=== PATIENT | male | born 1990 | race Caucasian/White ===

== ENCOUNTER 2016-11-16 13:23 | Emergency (ER) | payer MEDICAID ==
[~2016-11-16] VITALS: Ht 185.4 cm; Wt 70.5 kg
[2016-11-16] MEDS ORDERED: LIDOCAINE HCL 1% 20 ML VIAL INJ ONE (14:30)
[2016-11-16] MEDS ORDERED: PERTUSS(ACELL),DIPH,TET VAC/PF 0.5 ML VIAL IM ONE (14:30)
[2016-11-16 15:20] VITALS: BP 126/82
[2016-11-16] MEDS ORDERED: BACITRACIN 0.9 GM PACKET OINTMENT TP ONE (16:00)
== END 2016-11-16 16:07 | disposition home or self-care (01) ==
LOC: EMS 13:25
DX: S01.81XA Laceration without foreign body of other part of head, initial encounter (principal); F17.210 Nicotine dependence, cigarettes, uncomplicated; V00.131A Fall from skateboard, initial encounter; Y93.51 Activity, roller skating (inline) and skateboarding; Y92.89 Other specified places as the place of occurrence of the external cause; Y99.8 Other external cause status
CPT/HCPCS: 12011; 70100; 90471; 90715; 99284; J3490